=== PATIENT | male | born 1950 | race Caucasian/White ===

== ENCOUNTER 2018-08-13 09:40 | Outpatient (CLI) | payer MEDICARE, OTHER ==
[2018-08-13 10:27] LABS: ALBUMIN 4.4 g/dL (3.2-5.5); ALBUMIN/GLOBULIN RATIO 1.5 (1.0-2.2); ALKALINE PHOSPHATASE 68 IU/L (42-121); ALT ALANINE AMINOTRANSFERASE 22 IU/L (10-60); AST ASPARTATE AMINOTRANSFERASE 22 IU/L (10-42); BILIRUBIN,TOTAL 0.9 mg/dL (0.2-1.0); BUN - BLOOD UREA NITROGEN 13 mg/dL (6-20); CALCIUM 9.1 mg/dL (8.5-10.3); CARBON DIOXIDE - CO2 30 mmol/L (21-32); CHLORIDE 101 mmol/L (101-111); CHOL/HDL RATIO 3.4 (<5.0); CHOLESTEROL 165 mg/dL; CREATININE 1.1 mg/dL (0.6-1.2); GFR - MDRD 67 (>89); GLUCOSE 99 mg/dL (70-100); HDL CHOLESTEROL 48 mg/dL; LDL CHOLESTEROL,CALCULATED 103 mg/dL; LDL/HDL RATIO 2.1 (<3.6); SODIUM 136 mmol/L (135-145); TOTAL PROTEIN 7.4 g/dL (6.7-8.2); VLDL CHOLESTEROL 14 mg/dL
== END 2018-08-13 09:41 | disposition home or self-care (01) ==
LOC: LAB 09:40
PROVIDERS: ATTEND Internal Medicine
DX: Z12.5 Encounter for screening for malignant neoplasm of prostate (principal); I10 Essential (primary) hypertension; I20.9 Angina pectoris, unspecified
CPT/HCPCS: 80053; 80061; 84443; G0103; 36415; 81001; 83721; 84153

== ENCOUNTER 2018-09-17 10:39 | Outpatient (CLI) | payer MEDICARE, OTHER ==
[2018-09-17 10:53] LABS: BILIRUBIN,URINE NEGATIVE (NEGATIVE); GLUCOSE, URINE (UA) NEGATIVE (NEGATIVE); KETONES,URINE (UA) NEGATIVE (NEGATIVE); LEUKOCYTE ESTERASE, URINE SMALL (NEGATIVE); NITRITE,URINE NEGATIVE (NEGATIVE); OCCULT BLOOD,URINE SMALL (NEGATIVE); PROTEIN,URINE NEGATIVE (NEGATIVE); UROBILINOGEN,URINE 0.2 (NORMAL) E.U./dL (NORMAL)
[2018-09-17 10:57] LABS: CLARITY,URINE CLOUDY (CLEAR)
[2018-09-17 11:35] LABS: BACTERIA,URINE Few /HPF (None Seen); EPITHELIAL CELLS,UR RARE Transitional /HPF (<= Few); RBC,URINE 0-5 /HPF (0-5); SQUAMOUS EPITHELIAL CELL,UR NONE SEEN (<= Few); WBC CLUMPS,URINE PRESENT
== END 2018-09-17 10:40 | disposition home or self-care (01) ==
LOC: LAB.F 10:39
PROVIDERS: ATTEND Internal Medicine
DX: Z12.5 Encounter for screening for malignant neoplasm of prostate (principal); I10 Essential (primary) hypertension; I20.9 Angina pectoris, unspecified
CPT/HCPCS: 81001

== ENCOUNTER 2018-09-17 12:35 | Emergency (ER) | payer MEDICARE, OTHER ==
[2018-09-17 12:50] VITALS: BP 171/91
--- NOTE | 2018-09-17 13:00 | ED Physician Documentation ---
PD HPI MALE - Stated complaint Stated Complaint: MALE - Chief complaint Chief Complaint: UTI - History obtained from History obtained from: Patient - History of Present Illness Timing - onset: How many days ago (6) Timing - duration: Days (6) Timing - details: Gradual onset Associated symptoms: Dysuria, Urinary frequency Similar symptoms before: Has not had sx before - Additional information Additional information: had outpatient UA today. call centre supervisor provider for his PCP told him to come to the ER for results. Review of Systems Constitutional: denies: Fever Respiratory: denies: Cough GI: denies: Abdominal Pain, Vomiting Skin: denies: Rash Musculoskeletal: denies: Back pain Neurologic: denies: Focal weakness, Numbness PD PAST MEDICAL HISTORY - Past Medical History Past Medical History: Yes - Present Medications Home Medications: Ambulatory Orders Medication Instructions Recorded Confirmed Cephalexin [Keflex] 500 mg PO Q6H #28 capsule 09/17/18 - Allergies Allergies/Adverse Reactions: Allergies Allergy/AdvReac Type Severity Reaction Status Date / Time No Known Drug Allergies Allergy Verified 09/17/18 12:50 - Living Situation Living Situation: reports: With family Living Arrangement: reports: At home - Social History Does the pt smoke?: No Does the pt have substance abuse?: No - Family History Family history: reports: Non contributory PD ED PE NORMAL - Vitals Vital signs reviewed: Yes - General General: Alert and oriented X 3, No acute distress - HEENT HEENT: Moist mucous membranes - Neck Neck: Supple, no meningeal sign - Cardiac Cardiac: RRR - Respiratory Respiratory: Clear bilaterally - Abdomen Abdomen: Soft, Non tender, Non distended - Back Back: No CVA TTP - Derm Derm: Warm and dry - Neuro Neuro: Alert and oriented X 3 - Psych Psych: Normal mood, Normal affect Results - Vitals Vitals: Vital Signs - 24 hr 09/17/18 12:47 Temperature 36.1 C L Heart Rate 59 L Respiratory 16 Rate Blood Pressure 171/91 H O2 Saturation 98 Oxygen O2 Source Room air PD MEDICAL DECISION MAKING - ED course Complexity details: reviewed results, considered differential, d/w patient ED course: 67-year-old male with a UTI. No pain with bowel movements. No evidence of prostatitis. Declines a rectal exam. Will place on antibiotics and follow-up with his doctor. He is very well-appearing, nontoxic. Afebrile. Patient counseled regarding signs and symptoms for which I believe and urgent re- evaluation would be necessary. Patient with good understanding of and agreement to plan and is comfortable going home at this time This document was made in part using voice recognition software. While efforts are made to proofread this document, sound alike and grammatical errors may occur. Departure - Departure Disposition: Home, Self Care Clinical Impression: UTI (urinary tract infection) Qualifiers: Urinary tract infection type: acute cystitis Hematuria presence: without hematuria Qualified Code(s): N30.00 - Acute cystitis without hematuria Condition: Good Instructions: ED UTI Cystitis Male Follow-Up: Darcy Huizar MD [Primary Care Provider] - Within 1 week (if not better) Prescriptions: Cephalexin [Keflex] 500 mg PO Q6H #28 capsule Comments: Take all antibiotics until gone. Return if you worsen. Discharge Date/Time: 09/17/18 13:06
== END 2018-09-17 13:06 | disposition home or self-care (01) ==
LOC: ED 12:35
DX: N30.00 Acute cystitis without hematuria (principal); Z12.5 Encounter for screening for malignant neoplasm of prostate; I10 Essential (primary) hypertension; I20.9 Angina pectoris, unspecified
CPT/HCPCS: 81001; 99283

== ENCOUNTER 2019-09-19 08:22 | Outpatient (CLI) | payer MEDICARE, OTHER ==
--- NOTE | 2019-09-19 13:53 | XRAY Report ---
Reason: SPRAIN OF LT HAND Procedure Date: 09/19/2019 Accession Number: [id number] / [id number] Procedure: XRN - Hand 3 View LT CPT Code: Final Report FULL RESULT: EXAM: LEFT HAND RADIOGRAPHY EXAM DATE: 09/19/2019 08:50 AM. CLINICAL HISTORY: Trauma, pain. COMPARISON: None. TECHNIQUE: 3 views. FINDINGS: Bones: Normal. No fractures or bone lesions. Joints: Mild degenerative changes distally and in the first CMC joint. Unremarkable MCP joints. No definite erosion. Soft Tissues: Unremarkable. IMPRESSION: Mild osteoarthritis. No acute disease. RADIA
== END 2019-09-19 08:23 | disposition home or self-care (01) ==
LOC: DI.N 08:22
PROVIDERS: ATTEND Internal Medicine
DX: M18.12 Unilateral primary osteoarthritis of first carpometacarpal joint, left hand (principal); M19.042 Primary osteoarthritis, left hand

== ENCOUNTER 2020-03-05 07:07 | Outpatient (CLI) | payer MEDICARE, OTHER | END 2020-03-05 07:08 | disposition home or self-care (01) | LOC: DI 07:07 | PROVIDERS: ATTEND Ophthalmology | DX: Z53.9 Procedure and treatment not carried out, unspecified reason (principal) ==

== ENCOUNTER 2020-03-07 06:52 | Outpatient (CLI) | payer MEDICARE, OTHER ==
[2020-03-07 07:02] LABS: CREATININE 1.2 mg/dL (0.6-1.2)
[2020-03-07] MEDS ORDERED: GADOBUTROL 10 MMOL/10 ML VIAL ONE (07:34)
[2020-03-07] MEDS ORDERED: GADOBUTROL 10 MMOL/10 ML VIAL IVP ONE (08:20)
--- NOTE | 2020-03-07 09:54 | MRI Report ---
PROCEDURE: Orbits W/WO INDICATIONS: MALIGNANT NEOPLASM OF RIGHT CONJUNCTIVA CONTRAST: IV CONTRAST: Gadavist ml: 8 TECHNIQUE: Noncontrast sagittal T1 spin echo, axial FLAIR, axial gradient echo, axial diffusion and ADC acquired through the brain. Coronal STIR, thin-slice axial T1 spin echo through the orbits. After the admin istration of contrast, thin slice axial and coronal T1 spin echo with fat saturation through the orbi ts, axial T1 spin echo with fat saturation through the brain. COMPARISON: None. FINDINGS: Image quality: Excellent. Orbits: Within the region of the right lacrimal gland, there is an enhancing mass seen, which demons trates dark signal T2-weighted images and dark signal on on precontrast T1-weighted images and demons trates little internal enhancement, although there is relatively prominent surrounding enhancement. T he mass itself measures up to 1.5 cm x 0.6 x 1.3 cm, as on series 1301 image 7 and on series 1201 jovani ge 5. Globes are symmetrical. The optic nerves are normal in size, without abnormal signal or enhancement. The extra-ocular muscles are normal and symmetric in appearance. Optic chiasm is normal. Periorb ital soft tissues appear normal. CSF spaces: Ventricles are normal in size and shape. Basal cisterns are patent. No extra-axial flu id collections. Brain: No intracranial bleeds or mass effects. No abnormal intracranial enhancement. Kaiser-white ma tter interface is intact. Diffusion weighted images demonstrate no acute ischemic insults. Pituitar y gland appears normal, without sellar or suprasellar masses. Brainstem appears normal. Normal intr avascular flow voids are present. Skull and face: Calvarial marrow is normal in signal. Sinuses: Sinuses and mastoids are clear. Mild to moderate rightward nasal septal deviation is incid entally noted. IMPRESSION: 1.5 cm mass with surrounding enhancement seen within the region of the right lacrimal gland along the lateral aspect of the right globe anteriorly. Reviewed by: Phillip Magaña MD on 03/07/2020 8:53 AM AKLYLE Approved by: Phillip Magaña MD on 03/07/2020 8:53 AM AKDT Station ID: [id number]
== END 2020-03-07 06:53 | disposition home or self-care (01) ==
LOC: DI 06:52
PROVIDERS: ATTEND Ophthalmology
DX: R22.0 Localized swelling, mass and lump, head (principal)
CPT/HCPCS: 36415; 70543; 82565; A9585

== ENCOUNTER 2023-08-04 17:04 | Emergency (ER) | payer MEDICARE, OTHER ==
[2023-08-04] MEDS ORDERED: LIDOCAINE 2% URO-JET 5 ML SYRINGE UR STA (17:31)
--- NOTE | 2023-08-04 17:38 | ED Physician Documentation ---
History of Present Illness - Stated complaint Stated Complaint: /POST OP BLEED - Chief complaint Chief Complaint: General - History obtained from History obtained from: Patient - Additonal information Additional information: He had a TURP yesterday, not a cystoplasty in contrast to the nurses notes. His surgeon was Dr. Espinoza at [facility]. He has not been able to have a satisfying urination since yesterday afternoon and is just dripping blood. Not on any anticoagulants or antiplatelet agents. PD PAST MEDICAL HISTORY - Past Medical History Past Medical History: Yes Cardiovascular: Hypertension Other Past Medical History: cancer - Past Surgical History Cardiovascular: CABG, Coronary stent - Present Medications Home Medications: Ambulatory Orders Medication Instructions Recorded Confirmed cephALEXin [Keflex] 500 mg PO Q6H #28 capsule 09/17/18 - Allergies Allergies/Adverse Reactions: Allergies Allergy/AdvReac Type Severity Reaction Status Date / Time No Known Drug Allergies Allergy Verified 09/17/18 12:50 - Social History Does the pt smoke?: No Smoking Status: Never smoker Does the pt have substance abuse?: No PD ED PE NORMAL - Vitals Vital signs reviewed: Yes - General General: Alert and oriented X 3, No acute distress - Neck Neck: Supple, no meningeal sign, No bony TTP, Other (Extensive postsurgical changes to the right neck from prior cancer) - Abdomen Abdomen: Non tender - Neuro Neuro: Alert and oriented X 3, Normal speech Results - Vitals Vitals: Vital Signs - 24 hr 08/04/23 17:14 Temperature 36.4 C L Heart Rate 83 Respiratory 20 Rate Blood Pressure 150/86 H O2 Saturation 98 Oxygen O2 Source Room air PD Medical Decision Making - ED course ED course: He presents with gross hematuria with clots and obstruction day after a TURP. Large catheter was placed and he was irrigated and felt much better and after irrigation the urine was clear. Departure - Departure Disposition: 01 Home, Self Care Clinical Impression: Gross hematuria, Urinary retention Condition: Good Instructions: ED Catheter Care Goff Comments: Drink plenty of fluids. Reasonable to return in 3 days given the holiday weekend for catheter removal and voiding trial. Sooner for new or worsening symptoms. Forms: PCP List
[2023-08-04 19:21] VITALS: BP 129/72; O2SAT 100
== END 2023-08-04 19:20 | disposition home or self-care (01) ==
LOC: ED 17:04
DX: R31.0 Gross hematuria (principal); R33.9 Retention of urine, unspecified; Z98.890 Other specified postprocedural states
CPT/HCPCS: 51702; 99283

== ENCOUNTER 2023-08-07 11:32 | Emergency (ER) | payer MEDICARE, OTHER ==
[2023-08-07 11:55] VITALS: BP 106/62; O2SAT 98
--- NOTE | 2023-08-07 13:19 | ED Physician Documentation ---
History of Present Illness - Stated complaint Stated Complaint: CATH REMOVAL - Chief complaint Chief Complaint: Abd Pain - History obtained from History obtained from: Patient - History of Present Illness Timing: Today Pain level max: 0 Pain level now: 0 - Additonal information Additional information: 72-year-old male had urinary retention after a TURP. He states he is here to have his catheter removed. He is no longer having any bleeding. No fevers. No chills. No cough. No congestion. The urine draining in the bag is clear. No abdominal pain. No back pain. Review of Systems Constitutional: denies: Fever, Chills GI: denies: Nausea, Vomiting, Diarrhea Skin: denies: Rash Musculoskeletal: denies: Neck pain, Back pain Neurologic: denies: Headache PD PAST MEDICAL HISTORY - Past Medical History Past Medical History: Yes Cardiovascular: Hypertension Other Past Medical History: Eye and neck cancer. - Past Surgical History Past Surgical History: Yes Cardiovascular: CABG, Coronary stent - Present Medications Home Medications: Ambulatory Orders Medication Instructions Recorded Confirmed cephALEXin [Keflex] 500 mg PO Q6H #28 capsule 09/17/18 - Allergies Allergies/Adverse Reactions: Allergies Allergy/AdvReac Type Severity Reaction Status Date / Time No Known Drug Allergies Allergy Verified 08/07/23 11:54 - Social History Does the pt smoke?: No Smoking Status: Never smoker Does the pt drink ETOH?: No Does the pt have substance abuse?: No - Immunizations Immunizations are current?: Yes - POLST Patient has POLST: No PD ED PE NORMAL - Vitals Vital signs reviewed: Yes - General General: Alert and oriented X 3, No acute distress - HEENT HEENT: Moist mucous membranes - Neck Neck: Supple, no meningeal sign - Cardiac Cardiac: RRR - Respiratory Respiratory: No respiratory distress, Clear bilaterally - Abdomen Abdomen: Soft, Non tender, Non distended - Back Back: No CVA TTP, No spinal TTP - Derm Derm: Warm and dry - Neuro Neuro: Alert and oriented X 3 - Psych Psych: Normal mood, Normal affect Results - Vitals Vitals: Vital Signs - 24 hr 08/07/23 11:48 Temperature 36.7 C Heart Rate 70 Respiratory 16 Rate Blood Pressure 106/62 O2 Saturation 98 Oxygen O2 Source Room air PD Medical Decision Making - ED course Complexity details: considered differential, d/w patient ED course: Patient's Goff catheter was removed. He does not have any urge to urinate currently. It is early in the day, he will return home and if he is unable to urinate by tonight, he will return for catheter placement. Patient counseled re garding signs and symptoms for which I believe and urgent re-evaluation would be necessary. Patient with good understanding of and agreement to plan and is comfortable going home at this time This document was made in part using voice recognition software. While efforts are made to proofread this document, sound alike and grammatical errors may occur. Departure - Departure Disposition: 01 Home, Self Care Clinical Impression: Encounter for Goff catheter removal Condition: Good Instructions: Goff Catheter Remove Follow-Up: your,doctor on Wednesday [Other] Comments: Your Goff catheter was removed today. If you are not able to void by tonight, you need to return to the emergency department for a another catheter placement. Please return if you worsen.
== END 2023-08-07 13:50 | disposition home or self-care (01) ==
LOC: ED 11:32
DX: Z46.6 Encounter for fitting and adjustment of urinary device (principal)
CPT/HCPCS: 99282; 99283

== ENCOUNTER 2023-08-08 19:51 | Emergency (ER) | payer MEDICARE, OTHER ==
[2023-08-08 20:54] VITALS: BP 142/75; O2SAT 97
--- NOTE | 2023-08-08 21:10 | ED Physician Documentation ---
History of Present Illness - Stated complaint Stated Complaint: CATHETER ISSUE - Chief complaint Chief Complaint: Abd Pain - History obtained from History obtained from: Patient - History of Present Illness Timing: Today Pain level max: 0 Pain level now: 0 - Additonal information Additional information: Eddie is a 72-year-old male who presents to the emergency department stating that he had a TURP last week. He had urinary retention after the procedure, a catheter was placed. The catheter was removed here yesterday. Has had difficulty urinating today. Not having pain. He states he is only able to urinate very small amounts at a time. Requesting the catheter be replaced. His urologist is Dr. Espinoza, at [facility]. Review of Systems Constitutional: denies: Fever GI: denies: Vomiting, Diarrhea Skin: denies: Rash Musculoskeletal: denies: Neck pain, Back pain Neurologic: denies: Headache PD PAST MEDICAL HISTORY - Past Medical History Past Medical History: Yes Cardiovascular: Hypertension - Past Surgical History Past Surgical History: Yes Cardiovascular: CABG, Coronary stent - Present Medications Home Medications: Ambulatory Orders Medication Instructions Recorded Confirmed cephALEXin [Keflex] 500 mg PO Q6H #28 capsule 09/17/18 - Allergies Allergies/Adverse Reactions: Allergies Allergy/AdvReac Type Severity Reaction Status Date / Time No Known Drug Allergies Allergy Verified 08/08/23 20:51 - Social History Does the pt smoke?: No Smoking Status: Never smoker Does the pt drink ETOH?: No Does the pt have substance abuse?: No - Immunizations Immunizations are current?: Yes - POLST Patient has POLST: No PD ED PE NORMAL - Vitals Vital signs reviewed: Yes - General General: Alert and oriented X 3, No acute distress - HEENT HEENT: Moist mucous membranes - Neck Neck: Supple, no meningeal sign - Cardiac Cardiac: RRR - Respiratory Respiratory: No respiratory distress, Clear bilaterally - Abdomen Abdomen: Soft, Non tender, Non distended - Derm Derm: Warm and dry - Neuro Neuro: Alert and oriented X 3 - Psych Psych: Normal mood, Normal affect Results - Vitals Vitals: Vital Signs - 24 hr 08/08/23 20:46 Temperature 36.5 C Heart Rate 81 Respiratory 16 Rate Blood Pressure 142/75 H O2 Saturation 97 Oxygen O2 Source Room air PD Medical Decision Making - ED course Complexity details: considered differential, d/w patient ED course: Goff catheter was placed. Tolerated well. No complications. Will leave the catheter in place until he follows up with his urologist. Patient counseled regarding signs and symptoms for which I believe and urgent re-evaluation would be necessary. Patient with good understanding of and agreement to plan and is comfortable going home at this time This document was made in part using voice recognition software. While efforts are made to proofread this document, sound alike and grammatical errors may occur. Departure - Departure Disposition: 01 Home, Self Care Clinical Impression: Urinary retention Condition: Good Instructions: ED Catheter Care Goff Follow-Up: Ethan Espinoza MD [Physician No Access] - Comments: We will leave the Goff catheter in place until you can be seen by your urologist. Please contact Dr. Espinoza's office in the morning for a follow-up appointment. Forms: PCP List
== END 2023-08-08 21:30 | disposition home or self-care (01) ==
LOC: ED 19:51
DX: R33.9 Retention of urine, unspecified (principal); I10 Essential (primary) hypertension
CPT/HCPCS: 51702; 99283

== ENCOUNTER 2023-09-03 17:27 | Emergency (ER) | payer MEDICARE, OTHER ==
--- NOTE | 2023-09-03 18:42 | ED Physician Documentation ---
History of Present Illness - Stated complaint Stated Complaint: CATHETER ISSUE - Chief complaint Chief Complaint: General - History obtained from History obtained from: Patient - History of Present Illness Timing: Prior to arrival - Additonal information Additional information: 72-year-old male presents requesting a leg bag change. He states that he had a TURP done earlier today at [facility], but the Goff leg bag that he was fitted with does not work properly and is leaking. He is requesting that we give him a replacement leg bag because he likes the leg straps better. Denies any other complaints. Review of Systems Constitutional: denies: Fever, Chills GI: denies: Abdominal Pain, Nausea, Vomiting : denies: Dysuria, Frequency, Hesitancy Neurologic: denies: Generalized weakness, Focal weakness, Numbness PD PAST MEDICAL HISTORY - Past Medical History Past Medical History: Yes Cardiovascular: Hypertension - Past Surgical History Past Surgical History: Yes Cardiovascular: CABG, Coronary stent - Present Medications Home Medications: Ambulatory Orders Medication Instructions Recorded Confirmed Amlodipine Besylate [Norvasc] 10 mg PO DAILY 08/08/23 08/08/23 Isosorbide Mononitrate [Isosorbide 60 mg PO DAILY 08/08/23 08/08/23 Mononitrate ER] Lisinopril [Zestril] 40 mg PO DAILY 08/08/23 08/08/23 Metoprolol Succinate [Toprol Xl] 25 mg PO DAILY 08/08/23 08/08/23 traZODone [Desyrel] 50 mg PO QPM 08/08/23 08/08/23 - Allergies Allergies/Adverse Reactions: Allergies Allergy/AdvReac Type Severity Reaction Status Date / Time No Known Drug Allergies Allergy Verified 09/03/23 17:32 - Social History Does the pt smoke?: No Smoking Status: Never smoker Does the pt drink ETOH?: No Does the pt have substance abuse?: No - Immunizations Immunizations are current?: Yes - POLST Patient has POLST: No PD ED PE NORMAL - Vitals Vital signs reviewed: Yes - General General: Alert and oriented X 3, No acute distress - HEENT HEENT: Atraumatic - Neck Neck: Supple, no meningeal sign - Cardiac Cardiac: RRR, Strong equal pulses - Respiratory Respiratory: No respiratory distress, Clear bilaterally - Abdomen Abdomen: Soft, Non tender, Non distended - Derm Derm: Normal color, Warm and dry, No rash - Extremities Extremities: No deformity, No tenderness to palpate, Normal ROM s pain - Neuro Neuro: Alert and oriented X 3, 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 Exchanged by nursing staff with no further leakage. Patient will follow-up as previously scheduled with his urologist. Departure - Departure Disposition: 01 Home, Self Care Clinical Impression: Leakage from urinary catheter Condition: Stable Instructions: ED Catheter Care Goff Forms: PCP List Discharge Date/Time: 09/03/23 19:02
[2023-09-03 19:04] VITALS: BP 148/70; O2SAT 98
== END 2023-09-03 19:02 | disposition home or self-care (01) ==
LOC: ED 17:27
DX: T83.031A Leakage of indwelling urethral catheter, initial encounter (principal); Y82.8 Other medical devices associated with adverse incidents
CPT/HCPCS: 99281; 99282